=== PATIENT | female | born 1985 | race Caucasian/White ===

== ENCOUNTER → 2016-09-10 | Outpatient (CLI) | payer OTHER, BC ==
[~2016-09-10] MED LIST: AZITTAB PO; BCPILLS PO
[2016-09-10 18:34] LABS: HEPATITIS B AB NEG
== END | disposition home or self-care (01) ==
LOC: C.MNPGOH 17:53
PROVIDERS: ATTEND Preventive Medicine Occupational Medicine
DX: Z77.21 Contact with and (suspected) exposure to potentially hazardous body fluids (principal); W46.1XXA Contact with contaminated hypodermic needle, initial encounter

== ENCOUNTER 2020-03-21 01:05 | Inpatient (IN) ==
--- NOTE | 2020-03-21 01:36 | Obstetrical Progress Note ---
Date of Service March 21, 2020 Physical Exam Physical Exam: Observation Note 34 F P0000 at 41.1 weeks seen for possible labor. GBS is negative. Covid is negative. FHT Cat 1 with irregular contractions. Cervix is 3/80/- 2/vertex/anterior/soft/intact. Will ambulate and re-check in 2 hours. Results & Data ([facility]) Vital Signs (Past 12 Hours) Vital Signs Temp Pulse Resp BP 03/21/20 01:22 36.7 C 70 20 126/71
[2020-03-21] MEDS ORDERED: OXYTOCIN 30 UNITS/500 ML BAG IV PRN ×3 (05:08→18:23)
[2020-03-21] MEDS ORDERED: ePHEDrine sulfate 50 MG/ML AMP ONE (05:28)
[2020-03-21] MEDS ORDERED: BUPIVACAINE 0.25% 30 ML VIAL ONE ×2 (05:28→11:33)
[2020-03-21] MEDS ORDERED: fentaNYL citrate 100 MCG/2 ML VIAL ONE (05:29)
[2020-03-21] MEDS ORDERED: fentaNYL 2MCG/ML ROPIV 1.25MG/ML 100 ML BAG EPI ONE (05:29)
[2020-03-21] MEDS: LACTATED RINGER'S 1,000 ML IV PRN ×4 (05:40→17:33)
[2020-03-21 05:50] LABS: Hematocrit (blood only) 34.2 % (37-47); Hemoglobin 11.3 g/dL (12.0-16.0); Mean Corpuscular Hemoglobin 28.7 pg (25-34); Mean Corpuscular Volume 86.8 fL (80-100); Mean Platelet Volume 9.8 fL (7.4-10.4); Platelet Count 306 K/uL (130-400); RDW Coefficient of Variation 13.1 % (11.5-14.5); RDW Standard Deviation 42.1 fL (36.4-46.3); Red Blood Count 3.94 M/uL (4.2-5.4); White Blood Count 16.84 K/uL (4.8-10.8)
[2020-03-21] MEDS ORDERED: NALOXONE HCL 1 MG in SODIUM CHLORIDE 0.9% 1000ML 1,000 ML IV PRN (06:28)
[2020-03-21] MEDS ORDERED: NALOXONE HCL 0.4 MG/1 ML VIAL/CARP IV PRN (06:28)
[2020-03-21] MEDS ORDERED: DiphenhydrAMINE HCL 50 MG/ML VIAL IV PRN (06:28)
[2020-03-21] MEDS ORDERED: ePHEDrine sulfate 50 MG/ML AMP IV PRN (06:28)
[2020-03-21] MEDS ORDERED: ONDANSETRON INJ 2 MG/ML 2 ML VIAL IV PRN (06:28)
[2020-03-21] MEDS ORDERED: PROMETHAZINE HCL 6.25 MG in SODIUM CHLORIDE 0.9% 50 ML IV PRN (06:28)
[2020-03-21] MEDS: fentaNYL 2MCG/ML ROPIV 1.25MG/ML 100 ML BAG EPI PRN ×2 (06:49→13:39)
--- NOTE | 2020-03-21 06:53 | Anesthesiology Consultation ---
Date of Service March 21, 2020 Assessment & Plan (1) Encounter for pre-operative examination: Chart Review Chart Review: Patient NOT seen in Pre Admission Testing and Acceptable Risk for Labor Epidural Consults Requested none ASA ASA2 Proposed Anesthesia Anesthesia Type: Labor Epidural Risk / Benefits Reviewed With: PT / POA / Parent / Guardian, Accepts Plan and Informed Consent Obtained History Height/Weight Height: 5 ft 7 in Weight: 111.13 kg Allergies Allergy/AdvReac Type Severity Reaction Status Date / Time No Known Allergies Allergy Mild Unverified 11/18/06 05:41 Medications Home Medications Medication Instructions Recorded Confirmed Last Taken magnesium 200 mg BID 03/21/20 03/21/20 03/20/20 08:00 vitamin #45-iron-FA 1 tab PO DAILY 03/21/20 03/21/20 03/20/20 08:00 Active Medications Generic Name Dose Route Start Last Admin Trade Name Freq PRN Reason Stop Dose Admin Lactated Ringer's 1,000 mls @ 125 mls/hr 03/21/20 05:08 03/21/20 06:50 Lr IV 03/23/20 05:07 125 mls/hr .Q8H PRN Administration L&D Protocol Protocol Ropivacaine 100 ml 03/21/20 06:28 03/21/20 06:49 Fentanyl 2mcg/Ml Ropiv 1.25mg/Ml 100 Ml Bag EPI 03/22/20 06:27 100 ml PRN PRN Administration Pain R/T Labor Protocol NPO Date Last Intake of Fluids: 03/20/20 Time Last Intake of Fluids: 20:00 Date Last Intake of Solids: 03/20/20 Time Last Intake of Solids: 20:00 Past Medical History Medical History Allergic rhinitis Exercise / Class Metabolic Activity II 4-5 Yardwork/Stairs/Walk up hill Past Family History Family History Other Diabetes Hypertension Past Anesthesia History No Hx of Anesthesia Complications and No Family Hx of Anesthesia Complications History of PONV No Hx of PONV and No Hx of Motion Sickness Social History Smoking Status: Never smoker Do You Dip or Chew Tobacco: No Hx Alcohol Use: No Hx Substance Use: No substance use type: does not use Physical Exam Vital Signs Last Vital Signs Temp 36.6 C 03/21/20 01:40 Pulse 74 03/21/20 06:51 Resp 20 03/21/20 01:40 BP 102/55 L 03/21/20 06:51 Pulse Ox 97 03/21/20 06:48 ENMT Mouth: no dentition abnormality Thyromental Distance: > or= 3.5 Finger Breadths Mallampati Class: II Neck normal visual inspection Respiratory normal respiratory effort Auscultation: lungs clear to auscultation bilaterally Cardiovascular Rate/Rhythm: regular rate and regular rhythm Psychiatric Orientation: alert Testing Laboratory Results 03/21/20 05:43
--- NOTE | 2020-03-21 08:49 | History & Physical Report ---
Date of Service March 21, 2020 Assessment & Plan (1) Uterine contractions at greater than 20 weeks of gestation: Patient is an 34-year-old G1, P0 at 41 weeks and 1 day of gestation admitted in active labor, received epidural for pain. Vital signs stable afebrile. heart rate reassuring. GBS negative. Coronavirus negative. Continue to monitor and anticipate vaginal delivery. All questions were answered. Admission and Anticipated Discharge Date Admission Date: March 21, 2020 History of Present Illness Primary Care Provider: NO PCP Patient is an 34-year-old G1, P0 at 41 weeks and 1 day of gestation who was admitted this morning by Dr. Whitmore for active labor. Contractions started yesterday afternoon got more stronger and regular after midnight. She denied leakage of fluid or vaginal bleeding and reported good movements. She received epidural for pain and is now comfortable. Her has been uncomplicated. Denies medical problems. GBS negative, Coronavirus negative. Allergies Allergy/AdvReac Type Severity Reaction Status Date / Time No Known Allergies Allergy Mild Unverified 11/18/06 05:41 Home Medications Home Medications Medication Instructions Recorded Confirmed Type magnesium 200 mg BID 03/21/20 03/21/20 History vitamin #45-iron-FA 1 tab PO DAILY 03/21/20 03/21/20 History Patient History Medical History Allergic rhinitis Family History Other Diabetes Hypertension Social History Smoking Status: Never smoker Second Hand Exposure: No; Do You Dip or Chew Tobacco: No; Tobacco Cessation Education Requested by Patient: No Hx Alcohol Use: No Hx Substance Use: No Preferred Language: Latvian Communication Ability: Effective Beliefs That Will Affect Care: None marital status: Current Living Situation: Spouse Other Information That Helps Us Care for You: No Feels Safe at Home: Yes Safety Concerns: Feels Safe At This Time [employer] History Denies h/o STD's, HSV/ Chlamydia/ GC Review of Systems All systems reviewed & are unremarkable except as noted in HPI & below Physical Exam Constitutional: WD/WN, vitals as above well developed and well nourished Comfortable with epidural. Gastrointestinal (Abdomen): normal bowel sounds, soft, nontender, no hepatosplenomegaly (Gravid, obese, unable to monitor contractions with external monitoring.) Genitourinary: normal external appearance OB Exam Abdomen: + vertex Manual OB Exam: + cervical dilation 7 cm, + cervical effacement 80%, + station - 1 and + amniotic fluid (Bulging bag: AROM'ed) clear OB Exam Monitor Tracing: + category I IUPC is placed, due to unable to monitor contractions with external toco. Results & Data ([facility]) Vital Signs (Past 12 Hours) Vital Signs Temp Pulse Resp BP Pulse Ox 03/21/20 08:43 69 95 03/21/20 08:39 78 94 03/21/20 08:38 74 130/74 93 03/21/20 08:34 71 93 03/21/20 08:33 71 95 03/21/20 08:29 65 94 03/21/20 08:28 67 94 03/21/20 08:23 65 101/56 L 94 03/21/20 08:18 68 96 03/21/20 08:13 70 98 03/21/20 08:08 36.8 C 74 20 112/63 95 03/21/20 08:03 70 95 03/21/20 07:58 73 97 03/21/20 07:53 70 112/63 97 03/21/20 07:48 73 96 03/21/20 07:43 77 96 03/21/20 07:38 76 20 109/59 L 95 03/21/20 07:33 77 96 03/21/20 07:28 74 96 03/21/20 07:23 73 97/54 L 94 03/21/20 07:18 68 97 03/21/20 07:15 69 94 03/21/20 07:13 71 96 03/21/20 07:10 18 03/21/20 07:08 73 99/54 L 93 03/21/20 07:03 81 95 03/21/20 07:02 77 94 03/21/20 06:58 82 95 03/21/20 06:53 84 95 03/21/20 06:52 76 94/52 L 03/21/20 06:51 74 102/55 L 03/21/20 06:48 85 97 03/21/20 06:47 85 100/53 L 03/21/20 06:44 75 110/56 L 94 03/21/20 06:43 95 H 118/64 95 03/21/20 06:38 81 96 03/21/20 06:34 83 94 03/21/20 06:33 84 95 03/21/20 05:13 81 113/70 03/21/20 01:40 36.6 C 20 03/21/20 01:22 36.7 C 70 20 126/71 Code Status & VTE Plan VTE Prophylaxis Plan VTE Prophylaxis will be ordered: No
[2020-03-21] MEDS ORDERED: Nursing to Pharmacy Communication SCH (11:00)
[2020-03-21] MEDS ORDERED: SODIUM CHLORIDE 0.9% INJ 10 ML VIAL ONE (11:31)
--- NOTE | 2020-03-21 15:36 | Obstetrical Progress Note ---
Date of Service March 21, 2020 Assessment & Plan Admission and Anticipated Discharge Date Admission Date: March 21, 2020 Subjective Patient is reevaluated She feels pain and pressure VE; 1004/ +2, IUPC is removed FHR categ I Trial of push: able to see top pf the head with hair from introitus Plan to start pushing Continue to monitor closely Results & Data ([facility]) Vital Signs (Past 12 Hours) Vital Signs Temp Pulse Resp BP Pulse Ox 03/21/20 15:33 80 135/62 100 03/21/20 15:32 102 H 88 L 03/21/20 15:28 86 100 03/21/20 15:23 78 100 03/21/20 15:18 71 129/71 100 03/21/20 15:13 70 100 03/21/20 15:08 71 98 03/21/20 15:03 83 121/72 100 03/21/20 14:58 74 100 03/21/20 14:53 88 100 03/21/20 14:48 36.9 C 79 18 112/64 100 03/21/20 14:43 73 100 03/21/20 14:39 89 87 L 03/21/20 14:38 82 100 03/21/20 14:33 72 122/71 100 03/21/20 14:28 81 100 03/21/20 14:23 75 100 03/21/20 14:18 75 123/72 100 03/21/20 14:13 77 99 03/21/20 14:08 77 100 03/21/20 14:03 72 100 03/21/20 14:02 74 119/65 03/21/20 13:59 78 116/63 03/21/20 13:58 80 100 03/21/20 13:57 75 172/68 H 03/21/20 13:55 83 84 L 03/21/20 13:53 89 95 03/21/20 13:48 79 100 03/21/20 13:43 81 100 03/21/20 13:38 74 100 03/21/20 13:34 74 122/59 L 03/21/20 13:33 76 100 03/21/20 13:28 69 100 03/21/20 13:23 72 100 03/21/20 13:18 76 98 03/21/20 13:17 68 106/64 03/21/20 13:13 76 100 09/07/20 13:08 66 100 03/21/20 13:04 68 101/58 L 03/21/20 13:03 67 100 03/21/20 12:58 75 99 03/21/20 12:53 70 100 03/21/20 12:48 69 110/59 L 100 03/21/20 12:43 68 100 03/21/20 12:38 68 100 03/21/20 12:34 36.6 C 65 18 107/58 L 03/21/20 12:33 65 100 03/21/20 12:28 67 100 03/21/20 12:23 72 100 03/21/20 12:19 68 18 103/58 L 03/21/20 12:18 69 100 03/21/20 12:13 65 100 03/21/20 12:08 66 100 03/21/20 12:04 65 18 106/58 L 03/21/20 12:03 68 100 03/21/20 11:58 71 100 03/21/20 11:53 67 100 03/21/20 11:48 69 100 03/21/20 11:47 61 18 108/58 L 03/21/20 11:45 63 18 110/58 L 03/21/20 11:43 62 18 104/53 L 100 03/21/20 11:39 65 18 100/57 L 03/21/20 11:38 65 100 03/21/20 11:33 65 100 03/21/20 11:30 20 03/21/20 11:28 69 100 03/21/20 11:24 64 114/57 L 03/21/20 11:23 65 89 L 03/21/20 11:18 63 89 L 03/21/20 11:15 63 89 L 03/21/20 11:13 66 90 03/21/20 11:09 36.7 C 67 20 112/58 L 89 L 03/21/20 11:08 65 90 03/21/20 11:03 70 92 03/21/20 11:02 67 88 L 03/21/20 10:58 72 94 03/21/20 10:54 64 131/78 03/21/20 10:53 66 93 03/21/20 10:48 73 94 03/21/20 10:47 67 89 L 03/21/20 10:43 79 94 03/21/20 10:39 65 135/76 03/21/20 10:38 66 96 03/21/20 10:33 66 98 03/21/20 10:28 69 99 03/21/20 10:24 63 129/78 03/21/20 10:23 65 97 03/21/20 10:18 67 100 03/21/20 10:13 74 97 03/21/20 10:09 70 20 127/75 03/21/20 10:08 71 100 03/21/20 10:03 72 100 03/21/20 09:58 67 99 03/21/20 09:54 68 20 126/72 03/21/20 09:53 74 99 03/21/20 09:48 77 96 03/21/20 09:43 74 100 03/21/20 09:38 70 133/76 98 03/21/20 09:33 82 99 03/21/20 09:28 78 99 03/21/20 09:23 81 126/79 100 03/21/20 09:18 82 100 03/21/20 09:13 86 98 03/21/20 09:09 68 20 128/78 03/21/20 09:08 68 98 03/21/20 09:03 72 97 03/21/20 08:58 77 97 03/21/20 08:53 71 128/70 92 03/21/20 08:50 36.8 C 20 03/21/20 08:48 73 94 03/21/20 08:46 83 94 03/21/20 08:43 69 95 03/21/20 08:39 78 94 03/21/20 08:38 74 130/74 93 03/21/20 08:34 71 93 03/21/20 08:33 71 95 03/21/20 08:29 65 94 03/21/20 08:28 67 94 03/21/20 08:23 65 101/56 L 94 03/21/20 08:18 68 96 03/21/20 08:13 70 98 03/21/20 08:08 36.8 C 74 20 112/63 95 07 08:03 70 95 03/21/20 07:58 73 97 03/21/20 07:53 70 112/63 97 03/21/20 07:48 73 96 03/21/20 07:43 77 96 03/21/20 07:38 76 20 109/59 L 95 03/21/20 07:33 77 96 03/21/20 07:28 74 96 03/21/20 07:23 73 97/54 L 94 03/21/20 07:18 68 97 03/21/20 07:15 69 94 03/21/20 07:13 71 96 03/21/20 07:10 18 03/21/20 07:08 73 99/54 L 93 03/21/20 07:03 81 95 03/21/20 07:02 77 94 03/21/20 06:58 82 95 03/21/20 06:53 84 95 03/21/20 06:52 76 94/52 L 03/21/20 06:51 74 102/55 L 03/21/20 06:48 85 97 03/21/20 06:47 85 100/53 L 03/21/20 06:44 75 110/56 L 94 03/21/20 06:43 95 H 118/64 95 03/21/20 06:38 81 96 03/21/20 06:34 83 94 03/21/20 06:33 84 95 03/21/20 05:13 81 113/70
--- NOTE | 2020-03-21 16:45 | Obstetrical Progress Note ---
Date of Service March 21, 2020 Assessment & Plan Admission and Anticipated Discharge Date Admission Date: March 21, 2020 Subjective Patient has been pushing with good efforts for over an hours Fatel scalp visible about 3 cm long with pushes FHR 150-160's, no decels Continue to monitor closely Anticipate Results & Data ([facility]) Vital Signs (Past 12 Hours) Vital Signs Temp Pulse Resp BP Pulse Ox 03/21/20 16:39 101 H 81 L 03/21/20 16:38 98 H 98 03/21/20 16:33 92 H 125/61 99 03/21/20 16:28 91 H 98 03/21/20 16:23 98 H 100 03/21/20 16:19 77 127/61 03/21/20 16:18 99 H 100 03/21/20 16:13 84 99 03/21/20 16:08 110 H 100 03/21/20 16:03 102 H 119/61 100 03/21/20 15:58 97 H 100 03/21/20 15:53 91 H 98 03/21/20 15:48 96 H 113/57 L 99 03/21/20 15:46 96 H 80 L 03/21/20 15:43 81 100 03/21/20 15:41 97 H 79 L 03/21/20 15:38 84 100 03/21/20 15:33 80 135/62 100 03/21/20 15:32 102 H 88 L 03/21/20 15:28 86 100 03/21/20 15:23 78 100 03/21/20 15:18 71 129/71 100 03/21/20 15:13 70 100 03/21/20 15:08 71 98 03/21/20 15:03 83 121/72 100 03/21/20 14:58 74 100 03/21/20 14:53 88 100 03/21/20 14:48 36.9 C 79 18 112/64 100 03/21/20 14:43 73 100 03/21/20 14:39 89 87 L 03/21/20 14:38 82 100 03/21/20 14:33 72 122/71 100 03/21/20 14:28 81 100 03/21/20 14:23 75 100 03/21/20 14:18 75 123/72 100 03/21/20 14:13 77 99 03/21/20 14:08 77 100 03/21/20 14:03 72 100 03/21/20 14:02 74 119/65 03/21/20 13:59 78 116/63 03/21/20 13:58 80 100 03/21/20 13:57 75 172/68 H 03/21/20 13:55 83 84 L 03/21/20 13:53 89 95 03/21/20 13:48 79 100 03/21/20 13:43 81 100 03/21/20 13:38 74 100 03/21/20 13:34 74 122/59 L 03/21/20 13:33 76 100 03/21/20 13:28 69 100 03/21/20 13:23 72 100 03/21/20 13:18 76 98 03/21/20 13:17 68 106/64 03/21/20 13:13 76 100 03/21/20 13:08 66 100 03/21/20 13:04 68 101/58 L 03/21/20 13:03 67 100 03/21/20 12:58 75 99 03/21/20 12:53 70 100 03/21/20 12:48 69 110/59 L 100 03/21/20 12:43 68 100 03/21/20 12:38 68 100 03/21/20 12:34 36.6 C 65 18 107/58 L 03/21/20 12:33 65 100 03/21/20 12:28 67 100 03/21/20 12:23 72 100 03/21/20 12:19 68 18 103/58 L 03/21/20 12:18 69 100 03/21/20 12:13 65 100 03/21/20 12:08 66 100 03/21/20 12:04 65 18 106/58 L 03/21/20 12:03 68 100 03/21/20 11:58 71 100 03/21/20 11:53 67 100 03/21/20 11:48 69 100 03/21/20 11:47 61 18 108/58 L 03/21/20 11:45 63 18 110/58 L 03/21/20 11:43 62 18 104/53 L 100 03/21/20 11:39 65 18 100/57 L 03/21/20 11:38 65 100 03/21/20 11:33 65 100 03/21/20 11:30 20 03/21/20 11:28 69 100 03/21/20 11:24 64 114/57 L 03/21/20 11:23 65 89 L 03/21/20 11:18 63 89 L 03/21/20 11:15 63 89 L 03/21/20 11:13 66 90 03/21/20 11:09 36.7 C 67 20 112/58 L 89 L 03/21/20 11:08 65 90 03/21/20 11:03 70 92 03/21/20 11:02 67 88 L 03/21/20 10:58 72 94 03/21/20 10:54 64 131/78 03/21/20 10:53 66 93 03/21/20 10:48 73 94 03/21/20 10:47 67 89 L 03/21/20 10:43 79 94 03/21/20 10:39 65 135/76 03/21/20 10:38 66 96 03/21/20 10:33 66 98 03/21/20 10:28 69 99 03/21/20 10:24 63 129/78 03/21/20 10:23 65 97 03/21/20 10:18 67 100 03/21/20 10:13 74 97 03/21/20 10:09 70 20 127/75 03/21/20 10:08 71 100 03/21/20 10:03 72 100 03/21/20 09:58 67 99 03/21/20 09:54 68 20 126/72 03/21/20 09:53 74 99 03/21/20 09:48 77 96 03/21/20 09:43 74 100 03/21/20 09:38 70 133/76 98 03/21/20 09:33 82 99 03/21/20 09:28 78 99 03/21/20 09:23 81 126/79 100 03/21/20 09:18 82 100 03/21/20 09:13 86 98 03/21/20 09:09 68 20 128/78 03/21/20 09:08 68 98 03/21/20 09:03 72 97 03/21/20 08:58 77 97 03/21/20 08:53 71 128/70 92 03/21/20 08:50 36.8 C 20 03/21/20 08:48 73 94 03/21/20 08:46 83 94 03/21/20 08:43 69 95 03/21/20 08:39 78 94 03/21/20 08:38 74 130/74 93 03/21/20 08:34 71 93 03/21/20 08:33 71 95 03/21/20 08:29 65 94 03/21/20 08:28 67 94 03/21/20 08:23 65 101/56 L 94 03/21/20 08:18 68 96 03/21/20 08:13 70 98 03/21/20 08:08 36.8 C 74 20 112/63 95 03/21/20 08:03 70 95 03/21/20 07:58 73 97 03/21/20 07:53 70 112/63 97 03/21/20 07:48 73 96 03/21/20 07:43 77 96 03/21/20 07:38 76 20 109/59 L 95 03/21/20 07:33 77 96 03/21/20 07:28 74 96 03/21/20 07:23 73 97/54 L 94 03/21/20 07:18 68 97 03/21/20 07:15 69 94 03/21/20 07:13 71 96 03/21/20 07:10 18 03/21/20 07:08 73 99/54 L 93 03/21/20 07:03 81 95 03/21/20 07:02 77 94 03/21/20 06:58 82 95 03/21/20 06:53 84 95 03/21/20 06:52 76 94/52 L 03/21/20 06:51 74 102/55 L 03/21/20 06:48 85 97 03/21/20 06:47 85 100/53 L 03/21/20 06:44 75 110/56 L 94 03/21/20 06:43 95 H 118/64 95 03/21/20 06:38 81 96 03/21/20 06:34 83 94 03/21/20 06:33 84 95 03/21/20 05:13 81 113/70
[2020-03-21] MEDS ORDERED: MEASLES, MUMPS & RUBELLA VIRUS VIAL SQ ONE (18:23)
[2020-03-21] MEDS ORDERED: OXYCODONE/ACETAMINOPHEN 5mg/325mg TAB PO PRN (18:23)
[2020-03-21] MEDS ORDERED: BENZOCAINE 20% AER SPR 82.5 GM CAN EXT PRN (18:23)
[2020-03-21] MEDS ORDERED: bisacodyL 10 MG SUPP PR PRN (18:23)
[2020-03-21] MEDS ORDERED: SUPERCREAM 0.870% 15 GM JAR EXT PRN (18:23)
[2020-03-21] MEDS ORDERED: DIPHTHERIA/TETANUS/PERTUSSIS 0.5 ML SYR/VIAL IM ONE (18:23)
[2020-03-21] MEDS ORDERED: ACETAMINOPHEN 325 MG TAB PO PRN (18:23)
[2020-03-21] MEDS ORDERED: HYDROCORTISONE ACETATE 25 MG SUPP PR PRN (18:23)
--- NOTE | 2020-03-21 18:29 | Anesthesia Procedure Note ---
Date of Service March 21, 2020 Anesthesia Post Epidural Note Vital Signs Vital Signs: Temp Pulse Resp BP Pulse Ox 37.0 C 84 20 159/80 H 100 03/21/20 16:49 03/21/20 18:23 03/21/20 16:49 03/21/20 18:18 03/21/20 18:23 Pain Intensity Bilateral Abdomen: Pain Intensity: 3 Notes Mental Status: alert / awake / arousable and participated in evaluation Nausea / Vomiting: adequately controlled Pain: adequately controlled Airway Patency, RR, SpO2: stable & adequate BP & HR: stable & adequate Hydration State: stable & adequate Neuraxial Anesthesia: was administered and sensory block is resolving Anesthetic Complications: no major complications apparent and Pt Satisfied with anesthetic care Epidural: Removed without complications and With tip intact
[2020-03-21] MEDS: DOCUSATE SODIUM 100 MG CAP PO SCH (22:03)
--- NOTE | 2020-03-22 02:37 | Delivery Summary ---
DATE OF OPERATION: 03/21/2020 TIME: 17:58 p.m. DETAILS OF DELIVERY: The patient was found to be fully dilated and desired to push. She pushed for about 2-1/2 hours and was exhausted. heart rate was tachycardic at 170s-180s. Head was , but there was a tight band around the hymen. After verbal consent was obtained, a right mediolateral episiotomy was opened and then head was delivered and the shoulders came right after the head. Baby was handed off to the mother where mouth and nose were suctioned. Cord was clamped x2 and cut at 1 minute delay. Cord blood was obtained. Vagina and perineum were checked for lacerations. There was a small right mediolateral episiotomy which was opened earlier. It was second-degree. The vaginal mucosa was repaired with 2-0 Vicryl in a running fashion, bulbocavernous muscles in a continuous fashion and the skin in a subcuticular fashion. Excellent hemostasis was achieved. There was a superficial left labial laceration, which extended into the left hymen at 2 o'clock position. It was repaired with 3-0 Vicryl in a running fashion and excellent hemostasis was achieved. Rest of the vagina and perineum were intact. Placenta was found to be in the vagina, delivered spontaneously intact and complete. Uterus was explored, found to be empty. Lower segment was cleared of all clots and debris. EBL was 200 mL and fundus was firm. Mom and baby tolerated the procedure well. Sponge, lap, needle count was correct x2. Baby was a viable female , Apgars 8/9. No complications happened and I was present during whole procedure. I attest to the content of the Intraoperative Record and any orders documented therein. Any exceptions are noted below. MATTD
[2020-03-22] MEDS: IBUPROFEN 600 MG TAB PO PRN ×3 (04:58→20:19)
[2020-03-22 05:40] LABS: Hematocrit (blood only) 29.2 % (37-47); Mean Corpuscular Hemoglobin 29.9 pg (25-34); Mean Corpuscular Hgb Conc 34.2 g/dL (32-36); Mean Corpuscular Volume 87.4 fL (80-100); Mean Platelet Volume 9.9 fL (7.4-10.4); Platelet Count 259 K/uL (130-400); RDW Coefficient of Variation 13.5 % (11.5-14.5); RDW Standard Deviation 43.2 fL (36.4-46.3); Red Blood Count 3.34 M/uL (4.2-5.4); White Blood Count 16.68 K/uL (4.8-10.8)
[2020-03-22] MEDS: FERROUS SULFATE 325 MG TAB PO SCH (07:46)
[2020-03-22] MEDS: PRENATAL VITAMIN 1 TAB PO SCH (07:46)
[2020-03-22] MEDS: DOCUSATE SODIUM 100 MG CAP PO SCH ×2 (07:46→20:19)
--- NOTE | 2020-03-22 09:16 | Obstetrical Progress Note ---
Date of Service March 22, 2020 Assessment & Plan Admission and Anticipated Discharge Date Admission Date: March 21, 2020 Subjective PPD#1 doing well out of bed aidee diet Physical Exam Constitutional: WD/WN, vitals as above comfortable fundus firm no edema neg Yoav's Results & Data ([facility]) Vital Signs (Past 12 Hours) Vital Signs Temp Pulse Resp BP Pulse Ox 03/22/20 08:05 36.8 C 78 18 109/70 97 03/22/20 07:39 36.9 C 80 18 100/62 99 03/22/20 04:35 36.8 C 80 18 99/66 L 100 03/22/20 00:00 36.5 C 79 18 103/65 96 Laboratory Results Laboratory Results - last 48 hr 03/21/20 03/22/20 05:43 05:15 WBC 16.84 H 16.68 H RBC 3.94 L 3.34 L Hgb 11.3 L 10.0 L Hct 34.2 L 29.2 L MCV 86.8 87.4 MCH 28.7 29.9 MCHC 33.0 34.2 RDW Std Deviation 42.1 43.2 RDW Coeff of Jesusita 13.1 13.5 Plt Count 306 259 MPV 9.8 9.9
[2020-03-22] MEDS ORDERED: bisacodyL 5 MG TABEC PO SCH (20:00)
[2020-03-23 07:31] LABS: Hematocrit (blood only) 28.3 % (37-47); Hemoglobin 9.4 g/dL (12.0-16.0)
[2020-03-23] MEDS: PRENATAL VITAMIN 1 TAB PO SCH (08:35)
[2020-03-23] MEDS: IBUPROFEN 600 MG TAB PO PRN (08:35)
[2020-03-23] MEDS: DOCUSATE SODIUM 100 MG CAP PO SCH (08:35)
[2020-03-23] MEDS: FERROUS SULFATE 325 MG TAB PO SCH (08:35)
--- NOTE | 2020-03-23 09:31 | Obstetrical Progress Note ---
Date of Service March 23, 2020 Assessment & Plan Admission and Anticipated Discharge Date Admission Date: March 21, 2020 Physical Exam Physical Exam: abdomen soft and non tender no calf tenderness ambulating well vaginal bleeding scant hgb 9.4 Results & Data ([facility]) Vital Signs (Past 12 Hours) Vital Signs Temp Pulse Resp BP Pulse Ox 03/23/20 08:00 36.7 C 60 18 98/62 L 100 03/23/20 00:20 36.7 C 66 14 93/60 L 100
[2020-03-23] MEDS ORDERED: STROKE PATIENT DISCHARGE STA (09:34)
== END 2020-03-23 13:05 | disposition home or self-care (01) | DRG 807 ==
LOC: OPB 01:05 → 4S1 01:07 → 4S2 20:35

== ENCOUNTER 2023-07-22 07:55 | Inpatient (IN) ==
[2023-07-22] MEDS ORDERED: OXYTOCIN 30 UNITS/NSS 30 UNITS/500 ML BAG IV PRN ×3 (08:01→17:27)
[2023-07-22] MEDS ORDERED: LIDOCAINE 1% LOCAL 20 ML VIAL INFIL PRN (08:01)
[2023-07-22 08:44] LABS: Hematocrit (blood only) 32.4 % (37.0-47.0); Hemoglobin 10.8 g/dl (12.0-16.0); Mean Corpuscular Hemoglobin 28.5 pg (25.0-34.0); Mean Corpuscular Hgb Conc 33.3 g/dL (32.0-36.0); Mean Corpuscular Volume 85.5 fL (80.0-100.0); Mean Platelet Volume 10.2 fL (9.4-12.4); Platelet Count 309 K/uL (130-400); RDW Coefficient of Variation 13.8 % (11.5-14.5); RDW Standard Deviation 42.7 fL (36.4-46.3); Red Blood Count 3.79 M/uL (4.20-5.40); White Blood Count 11.37 K/ul (4.8-10.8)
[2023-07-22] MEDS: LACTATED RINGER'S 1,000 ML IV PRN ×2 (09:13→13:56)
--- NOTE | 2023-07-22 10:49 | History & Physical Report ---
Date of Service July 22, 2023 Assessment & Plan (1) Hypothyroidism during : Plan: Current Estimate 07/27/23 LMP (Certain) 38w 6d LMP: 10/20/22 : 2 Full term: 1 Premature: 0 Total Number of Induced Abortions: 0 Total Number of Spontaneous Abortions: 0 Ectopics: 0 Multiple births: 0 Number of Living Children: 1 and Delivery Plans AMA Weekly NST's @ 36 weeks rhogam candidate Rhogam given 05/14/23 - [place] Hypothyroid *Check TFTs Q4wks Superficial thrombosis external vein during *Currently on Lovenox and follows with [facility] *Heme Consult --placed back on Lovenox 80mg at 36 6/7 *extension of supervicial DVT on recent duplex * Plan Lovenox 80mg PP for at least 90 days. *Labs obtained. *IOL 07/22--[place] Hold Lovenox 24hr prior to IOL per Heme Admission and Anticipated Discharge Date Admission Date: July 22, 2023 History of Present Illness Primary Care Provider: Cristiano Bravo MD induction of labor Allergies Allergy/AdvReac Type Severity Reaction Status Date / Time No Known Allergies Allergy Mild Verified 07/22/23 09:59 Home Medications Medication Instructions Recorded Confirmed Type prenat.vits,power,url-[id number]-[id number] 1 tab PO DAILY 12/19/22 07/22/23 History levothyroxine 100 mcg tablet 100 mcg PO .COMPLEX #30 tabs 05/14/23 07/22/23 Rx Patient History Medical History (Updated 07/22/23 @ 09:58 by Brittani Tompkins RN) Superficial thrombophlebitis during Lovenox BID last dose 07/20/23 History of chicken pox Allergic rhinitis Surgical History [place] teeth extracted Family History Grandmother (Maternal) Breast cancer Grandfather (Paternal) Colorectal cancer Other Diabetes Hypertension Denies family history of Ovarian cancer Prostate cancer Myocardial infarction Social History Smoking Status: Never smoker Second Hand Exposure: No; Do You Dip or Chew Tobacco: No; Hx Alcohol Use: No Hx Substance Use: No Preferred Language: Lao Communication Ability: Effective Behavioral Health Care Coordinator Required: No Beliefs That Will Affect Care: None marital status: marital status details: Tenzin Fitzpatrick (40) [phone] Current Living Situation: Family Current Living Situation Comment: and daughter current occupational status: employed current occupation: [employer], [employer] Other Information That Helps Us Care for You: No Feels Safe at Home: Yes Safety Concerns: Feels Safe At This Time Assistive Devices: None Physical Exam Constitutional: WD/WN, vitals as above well developed and well nourished Respiratory: normal respiratory effort, lungs clear to auscultation normal respiratory effort Cardiovascular: RRR, no murmur, no edema Gastrointestinal (Abdomen): normal bowel sounds, soft, nontender, no hepatosplenomegaly Results & Data Vital Signs (Past 12 Hours) Vital Signs Temp Pulse Resp BP 07/22/23 10:16 76 07/22/23 10:16 18 111/60 07/22/23 09:15 83 07/22/23 09:15 99/64 L 07/22/23 08:11 98.6 F 20 07/22/23 08:01 92 H 127/69 Coding Level of Care Code None Diagnoses Hypothyroidism during in third trimester O99.283; E03.9 Trimester: third trimester (1) Hypothyroidism during Trimester: third trimester Qualified Code(s): O99.283 - Endocrine, nutritional and metabolic diseases complicating , third trimester; E03.9 - Hypothyroidism, unspecified
[2023-07-22] MEDS ORDERED: fentaNYL citrate PF 100 MCG/2 ML VIAL ONE (13:30)
[2023-07-22] MEDS ORDERED: ePHEDrine sulfate 50 MG/ML AMP ONE (13:30)
[2023-07-22] MEDS ORDERED: LIDOCAINE 2%/EPINEPHRINE 1:200,000 20 ML PF ONE (13:31)
[2023-07-22] MEDS ORDERED: BUPIVACAINE 0.25% PF 30 ML VIAL ONE (13:31)
[2023-07-22] MEDS ORDERED: fentANYL 2 MCG/ML BUPIVacaine 0.125%-NSS 100ML BAG ONE (13:31)
[2023-07-22] MEDS ORDERED: SODIUM CHLORIDE 0.9% PF INJ 10 ML VIAL ONE (13:31)
--- NOTE | 2023-07-22 13:58 | Anesthesiology Consultation ---
Date of Service July 22, 2023 Assessment & Plan Chart Review Chart Review: Acceptable Risk for Labor Epidural Consults Requested none ASA ASA2 Proposed Anesthesia Anesthesia Type: Labor Epidural Risk / Benefits Reviewed With: PT / POA / Parent / Guardian, Accepts Plan and Informed Consent Obtained History Height/Weight Height: 5 ft 7 in Weight: 106.594 kg Allergies Allergy/AdvReac Type Severity Reaction Status Date / Time No Known Allergies Allergy Mild Verified 07/22/23 09:59 Medications Home Medications Medication Instructions Recorded Confirmed Last Taken prenat.vits,power,atp-[id number]-ysedw 1 tab PO DAILY 12/19/22 07/22/23 07/22/23 06:00 levothyroxine 100 mcg tablet 100 mcg PO .COMPLEX #30 tabs 05/14/23 07/22/23 07/22/23 06:00 Active Medications Generic Name Dose Route Start Last Admin Trade Name Freq PRN Reason Stop Dose Admin Lactated Ringer's 1,000 mls @ 125 mls/hr 07/22/23 08:01 07/22/23 13:56 Lr IV 07/24/23 08:00 999 mls/hr .Q8H PRN Administration L&D Protocol Protocol Oxytocin 30 units in 500 mls @ 13 mls/hr 07/22/23 08:03 07/22/23 12:50 Pitocin 30 Units/Nss IV 07/24/23 08:02 0.78 units/hr .Q24H PRN 13 mls/hr Labor Induction/Augmentation Titration Protocol 0.78 UNITS/HR Past Medical History Medical History Superficial thrombophlebitis during Lovenox BID last dose 07/20/23 History of chicken pox Allergic rhinitis Exercise / Class Metabolic Activity II 4-5 Yardwork/Stairs/Walk up hill Past Family History Family History Grandmother (Maternal) Breast cancer Grandfather (Paternal) Colorectal cancer Other Diabetes Hypertension Denies family history of Ovarian cancer Prostate cancer Myocardial infarction Past Surgical History Surgical History Casey teeth extracted Past Anesthesia History No Hx of Anesthesia Complications and No Family Hx of Anesthesia Complications History of PONV No Hx of PONV and No Hx of Motion Sickness Social History Smoking Status: Never smoker Do You Dip or Chew Tobacco: No Hx Alcohol Use: No Hx Substance Use: No substance use type: does not use Physical Exam Vital Signs Last Vital Signs Temp 98.6 F 07/22/23 11:05 Pulse 69 07/22/23 12:53 Resp 20 07/22/23 11:05 BP 112/65 07/22/23 12:53 ENMT Mouth: no dentition abnormality Thyromental Distance: > or= 3.5 Finger Breadths Mallampati Class: II Neck normal visual inspection Respiratory normal respiratory effort Auscultation: lungs clear to auscultation bilaterally Cardiovascular Rate/Rhythm: regular rate and regular rhythm Testing Laboratory Results 07/22/23 08:14 Blood Type O Negative 07/22/23 08:14 Antibody Screen NEGATIVE 07/22/23 08:14
[2023-07-22] MEDS ORDERED: NALOXONE HCL 1 MG in SODIUM CHLORIDE 0.9% 1,000 ML IV PRN (14:23)
[2023-07-22] MEDS ORDERED: fentANYL 2 MCG/ML BUPIVacaine 0.125%-NSS 100ML BAG EPI PRN (14:23)
[2023-07-22] MEDS ORDERED: SODIUM CHLORIDE 0.9% PF INJ 10 ML VIAL EPI PRN (14:23)
[2023-07-22] MEDS ORDERED: BUPIVACAINE 0.25% PF 30 ML VIAL EPI STA (14:23)
[2023-07-22] MEDS ORDERED: LIDOCAINE 2%/EPINEPHRINE 1:200,000 20 ML PF EPI STA (14:23)
[2023-07-22] MEDS ORDERED: diphenhydrAMINE 50 MG/ML VIAL IV PRN (14:23)
[2023-07-22] MEDS ORDERED: BUPIVACAINE 0.25% PF 30 ML VIAL EPI PRN (14:23)
[2023-07-22] MEDS ORDERED: ePHEDrine sulfate 50 MG/ML AMP IV PRN (14:23)
[2023-07-22] MEDS ORDERED: ROPIVACAINE 0.5% PF 5 MG/ML 20 ML VIAL EPI PRN (14:23)
[2023-07-22] MEDS ORDERED: SODIUM CHLORIDE 0.9% PF INJ 10 ML VIAL EPI STA (14:23)
[2023-07-22] MEDS ORDERED: fentaNYL citrate PF 100 MCG/2 ML VIAL EPI PRN (14:23)
[2023-07-22] MEDS ORDERED: ONDANSETRON INJ 2 MG/ML 2 ML VIAL IV PRN (14:23)
[2023-07-22] MEDS ORDERED: fentaNYL citrate PF 100 MCG/2 ML VIAL EPI STA (14:23)
[2023-07-22] MEDS ORDERED: LIDOCAINE 2% MPF LOCAL 5 ML VIAL EPI PRN (14:23)
[2023-07-22] MEDS ORDERED: NALBUPHINE HCL 5 MG in SYRINGE 0 ML IV PRN (14:23)
[2023-07-22] MEDS ORDERED: NALOXONE HCL 0.4 MG/1 ML VIAL/CARP IV PRN (14:23)
--- NOTE | 2023-07-22 15:12 | Labor Progress Brief Note ---
Date of Service July 22, 2023 Subjective comfortable with epidural Assessment & Plan (1) Encounter for induction of labor: Plan continue current management. fetus category one Admission and Anticipated Discharge Date Admission Date: July 22, 2023 Physical Exam Physical Exam: cx--5/80/-2 arom--thin green mec toco--q2-4, pit at 13 efm--120s with mod variabiltiy, accels to 150s, no decels Results & Data Vital Signs (Past 12 Hours) Vital Signs Temp Pulse Resp BP Pulse Ox 07/22/23 15:08 100 07/22/23 15:08 81 07/22/23 15:03 100 07/22/23 15:03 69 07/22/23 14:58 99 07/22/23 14:58 72 07/22/23 14:57 69 07/22/23 14:57 109/66 07/22/23 14:53 99 07/22/23 14:53 68 07/22/23 14:48 99 07/22/23 14:48 71 07/22/23 14:43 99 07/22/23 14:43 76 07/22/23 14:38 100 07/22/23 14:38 67 07/22/23 14:35 78 07/22/23 14:35 105/55 L 07/22/23 14:33 100 07/22/23 14:33 67 07/22/23 14:30 74 07/22/23 14:30 117/62 07/22/23 14:28 100 07/22/23 14:28 78 07/22/23 14:24 74 07/22/23 14:24 115/60 07/22/23 14:23 100 07/22/23 14:23 76 07/22/23 14:22 72 07/22/23 14:22 114/62 07/22/23 14:20 162 H 07/22/23 14:20 111/71 07/22/23 14:18 100 07/22/23 14:18 76 07/22/23 14:15 69 07/22/23 14:15 116/74 07/22/23 14:13 100 07/22/23 14:13 67 07/22/23 14:08 100 07/22/23 14:08 65 07/22/23 14:03 100 07/22/23 14:03 73 07/22/23 13:58 100 07/22/23 13:58 92 H 07/22/23 13:58 74 07/22/23 13:58 116/67 07/22/23 12:53 69 07/22/23 12:53 112/65 07/22/23 12:19 71 07/22/23 12:19 105/63 07/22/23 11:05 20 07/22/23 11:05 37.0 C 20 07/22/23 11:05 69 07/22/23 11:05 103/60 07/22/23 10:16 76 07/22/23 10:16 18 111/60 07/22/23 09:15 83 07/22/23 09:15 99/64 L 07/22/23 08:11 37.0 C 20 07/22/23 08:01 92 H 127/69 Coding Level of Care Code None Diagnoses Encounter for induction of labor Z34.90
[2023-07-22] MEDS ORDERED: NURSING L&D Epidural Breakthrough Pain Update ONE (16:38)
[2023-07-22] MEDS ORDERED: METHYLERGONOVINE MALEATE 0.2 MG/ML AMP ONE (17:23)
[2023-07-22] MEDS ORDERED: DIPHTHERIA/TETANUS/PERTUSSIS Vaccine (Tdap, Age 7+yrs) 0.5mL SYR/VL IM ONE (17:27)
[2023-07-22] MEDS ORDERED: ACETAMINOPHEN 325 MG TAB PO PRN (17:27)
[2023-07-22] MEDS ORDERED: oxyCODONE/ACETAMINOPHEN 5mg/325mg TAB PO PRN (17:27)
[2023-07-22] MEDS ORDERED: bisacodyL 10 MG SUPP PR PRN (17:27)
[2023-07-22] MEDS ORDERED: METHYLERGONOVINE MALEATE 0.2 MG/ML AMP IM ONE (17:27)
[2023-07-22] MEDS ORDERED: BENZOCAINE 20% SPRY 85 APPLN/85 GM CAN EXT PRN (17:27)
[2023-07-22] MEDS ORDERED: HYDROCORTISONE ACETATE 25 MG SUPP PR PRN (17:27)
--- NOTE | 2023-07-22 17:53 | Anesthesia Procedure Note ---
Date of Service July 22, 2023 Anesthesia Post Epidural Note Vital Signs Vital Signs: Temp Pulse Resp BP Pulse Ox 98.2 F 67 20 115/64 92 07/22/23 15:12 07/22/23 17:45 07/22/23 16:31 07/22/23 17:45 07/22/23 17:04 Pain Intensity Bilateral Abdomen: Pain Intensity: 2 Notes Mental Status: alert / awake / arousable and participated in evaluation Nausea / Vomiting: adequately controlled Pain: adequately controlled Airway Patency, RR, SpO2: stable & adequate BP & HR: stable & adequate Hydration State: stable & adequate Neuraxial Anesthesia: was administered and sensory block is resolving Anesthetic Complications: no major complications apparent and Pt Satisfied with anesthetic care Epidural: Removed without complications and With tip intact
[2023-07-22] MEDS: IBUPROFEN 600 MG TAB PO PRN (20:08)
[2023-07-22] MEDS: DOCUSATE SODIUM 100 MG CAP PO SCH (20:08)
[2023-07-23] MEDS: IBUPROFEN 600 MG TAB PO PRN ×2 (06:24→16:08)
[2023-07-23] MEDS: LEVOTHYROXINE SODIUM 100 MCG TABLET PO SCH (06:28)
--- NOTE | 2023-07-23 06:43 | Medical Student Progress Note ---
Date of Service July 23, 2023 Assessment & Plan (1) Encounter for induction of labor: Plan: 37-year-old day 1, Pt doing well. Afebrile. No chills. VSS. Tolerating diet. labs: WNL. without difficulty. Uncomplicated course. Continue routine care and Motrin PRN for pain. (2) Need for rhogam due to Rh negative mother: Plan: Rhogam ordered (3) Superficial thrombophlebitis of left leg: Plan: Plan to continue Lovenox 80mg BID Admission and Anticipated Discharge Date Admission Date: 07/22/2023 Anticipated date of discharge: 07/24/23 Subjective Pt doing well. Reports back pain from epidural and lower back pain (3/10) this morning but well controlled with meds. Motrin given last night at 6-7pm and this morning at 6:30. Afebrile. No chills. Scant/normal lochia that has been decreasing in volume. Voiding with no pain. Up and walking. Eating regular diet- since last night around 6-7pm. No N/V. Passing gas. No BM yet. without difficulty every 2-3 hrs. Physical Exam Physical Exam: General: Appears well, afebrile Heart: RRR, No m/r/g. Lungs: CTAB Abdomen: Soft abd, nontender to palpation Extremities: No edema, cyanosis Results & Data Vital Signs (Past 12 Hours) Vital Signs Temp Pulse Pulse Resp BP BP 07/23/23 03:33 36.5 C 71 18 94/59 L 07/22/23 23:22 36.8 C 66 18 99/61 L 07/22/23 19:47 36.7 C 69 18 109/71 07/22/23 19:15 20 07/22/23 19:15 71 07/22/23 19:15 108/61 07/22/23 19:00 68 07/22/23 19:00 106/57 L 07/22/23 18:46 20 07/22/23 18:46 74 07/22/23 18:46 113/56 L 07/22/23 18:31 73 07/22/23 18:31 108/59 L Laboratory Results Hgb: 10 HCT: 30 Supervising Attestation Resident Physician Supervision Note: I interviewed and examined the patient. Discussed with Dr. Thomas and agree with findings and plan as documented in the note. Any exceptions or clarifications are listed here: Doing well. Desires d/c . Instructions given. Documented By: Jinny Haq MD, FACOG
--- NOTE | 2023-07-23 07:51 | Obstetrical Progress Note ---
Date of Service <Rukhsana Thomas MD - Last Filed: 07/23/23 07:54> July 23, 2023 Assessment & Plan <Rukhsana Thomas MD - Last Filed: 07/23/23 07:54> (1) Encounter for care after hospital delivery: Patient with the above mentioned history and findings was evaluated at bedside and found awake, alert, oriented in all spheres, afebrile, and in no acute distress. Vital signs showed no fever and blood pressures remained stable Her blood type is O negative. Baby blood type is A positive. Rhogam ordered. Today's hemoglobin adequate at 10. Denies symptoms of anemia. She is GBS negative and rubella immune. Lovenox 80 mg bid ordered due to history of superficial DVT. Overall, patient is doing well clinically and meeting desired milestones. Will continue routine pp care. If she remains clinically and hemodynamically stable, will consider discharge tomorrow. All questions were answered. <Jinny Haq MD, FACOG - Last Filed: 07/23/23 07:58> (1) Encounter for care after hospital delivery: Subjective <Rukhsana Thomas MD - Last Filed: 07/23/23 07:54> Barbi is a 37 y/o female who is now PPD # 1 following at 39 2/7. Reports feeling well overall this morning. Refers mild abdominal cramping & 3/10 pain well managed on analgesics. Voiding spontaneously. Tolerating meals overnight and able to ambulate some. Passing gas but no bm yet. Some persistent lochia with some improvement this morning. . Constitutional: no fever, no chills or no sweats Denies shortness of breath or difficulty breathing Cardiovascular: no chest pain or no palpitations Breast: no breast pain Genitourinary (female): no dysuria Neurologic: no headache(s) Denies changes in vision Physical Exam <Rukhsana Thomas MD - Last Filed: 07/23/23 07:54> General: Alert. Oriented to person, time, and place. Afebrile. No acute distress. Eyes: pupils equal and reactive to light bilaterally, extraocular movements intact. Cardiac: Regular rate and rhythm, no murmurs/rubs/gallops. Respiratory: Clear to auscultation bilaterally a/p, no wheezes/rales/rhonchi. No increased work of breathing. Symmetrical chest rise. No respiratory distress. Abdomen: Soft, nontender, nondistended. Bowel sounds present. Uterus: Uterine fundus firm, nontender, and palpable below umbilicus. Lower Extremities: No lower extremity edema or swelling. No deep calf pain. Yoav's negative bilaterally. Psych: Euthymic affect. Mood and affect congruence. Regular speech rate and content. Results & Data <Rukhsana Thomas MD - Last Filed: 07/23/23 07:54> Vital Signs (Past 12 Hours) Vital Signs Temp Pulse Resp BP 07/23/23 03:33 36.5 C 71 18 94/59 L 07/22/23 23:22 36.8 C 66 18 99/61 L Supervising Physician <Jinny Haq MD, FACOG - Last Filed: 07/23/23 07:58> Co-Signing Physician Notes Resident Physician Supervision Note: I interviewed and examined the patient. Discussed with Dr. Thomas and agree with findings and plan as documented in the note. Any exceptions or clarifications are listed here: Doing well. routine care. Plans d/c tomorrow. Documented By: Jinny Haq MD, FACOG Resident Activity Tracking <Rukhsana Thomas MD - Last Filed: 07/23/23 07:54> Resident Involvement: Resident Care Provided Care Provided: OB Delivery
[2023-07-23] MEDS: DOCUSATE SODIUM 100 MG CAP PO SCH ×2 (08:58→20:33)
[2023-07-23] MEDS: ENOXAPARIN 80 MG/0.8 ML SYR SQ SCH ×2 (08:59→20:33)
[2023-07-23] MEDS: PRENATAL VITAMIN 1 TAB PO SCH (08:59)
[2023-07-23] MEDS ORDERED: bisacodyL 5 MG TABEC PO SCH (20:00)
[2023-07-24] MEDS: LEVOTHYROXINE SODIUM 100 MCG TABLET PO SCH (06:18)
--- NOTE | 2023-07-24 07:26 | Obstetrical Progress Note ---
Date of Service <Rukhsana Thomas MD - Last Filed: 07/24/23 08:17> July 24, 2023 Assessment & Plan <Rukhsana Thomas MD - Last Filed: 07/24/23 08:17> (1) Encounter for care after hospital delivery: Patient with the above mentioned history and findings was evaluated at bedside and found awake, alert, oriented in all spheres, afebrile, and in no acute distress. Vital signs showed no fever and blood pressures remained stable Her blood type is O negative. Baby blood type is A positive. Rhogam administered yesterday (05/23/23). Most recent hemoglobin adequate at 10. Denies symptoms of anemia. She is GBS negative and rubella immune. Currently on Lovenox 80 mg bid due to history of superficial DVT, as per her patient scheduling coordinator's recc. Overall, patient is doing well clinically and meeting desired milestones. Therefore, will discharge today. Discharge instructions discussed. She is to call to make an appointment with her OB in 6 weeks for her routine pp evaluation. All questions were answered. <Deborah Salter MD, FACOG - Last Filed: 07/24/23 08:46> (1) Encounter for care after hospital delivery: Subjective <Rukhsana Thomas MD - Last Filed: 07/24/23 08:17> Barbi is a 37 y/o female who is now PPD # 2 following at 39 2/7. Reports feeling well overall this morning. Refers mild abdominal cramping & 1/10 pain well managed on analgesics. Voiding spontaneously. Tolerating meals overnight and able to ambulate some. Passing gas but no bm yet. Some persistent lochia with some improvement this morning. and supplementing with bottle feeds due to baby's weight loss (7%). Constitutional: no fever, no chills or no sweats Denies shortness of breath or difficulty breathing Cardiovascular: no chest pain or no palpitations Breast: no breast pain Genitourinary (female): no dysuria Neurologic: no headache(s) Denies changes in vision Physical Exam <Rukhsana Thomas MD - Last Filed: 07/24/23 08:17> General: Alert. Oriented to person, time, and place. Afebrile. No acute distress. Eyes: pupils equal and reactive to light bilaterally, extraocular movements intact. Cardiac: Regular rate and rhythm, no murmurs/rubs/gallops. Respiratory: Clear to auscultation bilaterally, no wheezes/rales/rhonchi. No increased work of breathing. Symmetrical chest rise. No respiratory distress. Abdomen: Soft, nontender, nondistended. Bowel sounds present. Uterus: Uterine fundus firm, nontender, and palpable below umbilicus. Lower Extremities: No lower extremity edema or swelling. No deep calf pain. Yoav's negative bilaterally. Psych: Euthymic affect. Mood and affect congruence. Regular speech rate and content. Results & Data <Rukhsana Thomas MD - Last Filed: 07/24/23 08:17> Vital Signs (Past 12 Hours) Vital Signs Temp Pulse Resp BP Pulse Ox O2 Del Method 07/23/23 23:40 36.5 C 69 18 105/69 96 Room Air 07/23/23 19:30 36.5 C 73 18 107/68 98 Room Air Supervising Physician <Deborah Salter MD, FACOG - Last Filed: 07/24/23 08:46> Co-Signing Physician Notes Resident Physician Supervision Note: I was present with Dr. Thomas during the history and exam. I discussed the case with the resident and agree with the findings and plan as documented in the note. Any exceptions or clarifications are listed here: stable ready for dc home. instructions reviewed. eating, voiding, ambulating without issue. breast feeding. supporting baby with bottle feeding due to elevated bilirubin. rh neg, had rhogam. using lovenox per hematology instructions and has script from them. may need to go to [facility] today if baby not discharged. Documented By: Deborah Salter MD, FACOG Resident Activity Tracking <Rukhsana Thomas MD - Last Filed: 07/24/23 08:17> Resident Involvement: Resident Care Provided Care Provided: OB Delivery
[2023-07-24] MEDS: PRENATAL VITAMIN 1 TAB PO SCH (08:23)
[2023-07-24] MEDS: DOCUSATE SODIUM 100 MG CAP PO SCH (08:23)
[2023-07-24] MEDS: ENOXAPARIN 80 MG/0.8 ML SYR SQ SCH (08:23)
[2023-07-24] MEDS: IBUPROFEN 600 MG TAB PO PRN (08:26)
--- NOTE | 2023-07-25 14:45 | Delivery Summary ---
Vaginal Delivery Summary Date of Service July 22, 2023 Vaginal Delivery Summary and 1st Degree LAC Pre-operative Diagnosis: at 39 weeks hx of superficial thrombophlebitis of the left leg with clot on therapeutic Lovenox Post-operative Diagnosis: same Procedure: pitocin induction arom epidural first degree laceration and repair EBL: 400cc Anesthesia: epidural Procedure: The patient was admitted for induction. She underwent pitocin, epidural and arom for clear fluid. The patient pushed for 3-4 contractions to deliver a viable male infant in eliceo position. The nose and mouth were bulb suctioned on the perineum and a nuchal cord x 2 was reduced. The rest of the was then delivered without difficulty. The baby was vigorous. The nose and mouth were again bulb suctioned and the infant was placed in the maternal abdomen for drying and attention. Cord was clamped and cut at one minute of life. Cord blood and segment obtained. Placenta delivered spontaneous, intact with a three vessel cord. Cervix/sulci/rectum were intact. A small first degree perineal laceration was repaired in the normal standard fashion. Hemostasis obtained with dilute pitocin and fundal massage. Apgars were 8/10. Mother and baby doing well at the end of the delivery. [facility] Vaginal Delivery Charge Delivery Type Details: and 1st Degree LAC
== END 2023-07-24 14:10 | disposition home or self-care (01) | DRG 807 ==
LOC: 4S1 07:55 → 4E2 19:57